=== PATIENT | female | born 1975 | race Caucasian/White ===

== ENCOUNTER 2018-02-17 20:07 | Inpatient (IN) | payer OTHER ==
[2018-02-17] MEDS ORDERED: ONDANSETRON 4 MG TAB PO (20:30)
[2018-02-17] MEDS ORDERED: NACL 0.9% 3 ML SYG IV (20:30)
[2018-02-17] MEDS ORDERED: BISACODYL (EC) 5 MG TAB PO (20:30)
[2018-02-17] MEDS ORDERED: DOCUSATE SODIUM 100 MG CAP PO (20:30)
[2018-02-17 21:02] LABS: ADD MAN DIFF? NO
[2018-02-17 21:04] LABS: BASOPHIL # 0.1 10^3/ul (0.0-0.1); BASOPHILS % 0.3 % (0.0-2.0); EOSINOPHILS % 0.1 % (0.0-7.0); HEMATOCRIT 34.3 % (37.0-47.0); HEMOGLOBIN 11.5 g/dl (12.0-16.0); LYMPHOCYTES % 11.5 % (15.0-51.0); MEAN CORPUSCULAR HEMOGLOBIN 30.4 pg (29.0-33.0); MEAN CORPUSCULAR HGB CONC 33.5 g/dl (32.0-37.0); MEAN CORPUSCULAR VOLUME 90.7 fl (82.0-101.0); MEAN PLATELET VOLUME 11.3 fl (7.4-10.4); MONOCYTE # 1.1 10^3/ul (0.3-0.9); MONOCYTES % 6.1 % (0.0-11.0); NEUTROPHIL # 14.3 10^3/ul (1.6-7.5); NEUTROPHILS % 81.5 % (39.0-77.0); PLATELET COUNT 237 10^3/UL (140-415); RED BLOOD COUNT 3.78 10^6/ul (4.20-5.40); RED CELL DISTRIBUTION WIDTH 12.7 % (11.5-14.5)
[2018-02-17 21:04] LABS: WHITE BLOOD COUNT 17.5 10^3/ul (4.8-10.8)
[2018-02-17] MEDS: SOD CHLORIDE 0.9% 1,000 ML IV (21:09)
[2018-02-17 21:27] LABS: ALANINE AMINOTRANSFERASE 16 IU/L (13-69); ALBUMIN 3.6 g/dl (3.3-4.9); ALKALINE PHOSPHATASE 71 IU/L (42-121); ANION GAP 13 (8-16); ASPARTATE AMINO TRANSFERASE 13 IU/L (15-46); BILIRUBIN,INDIRECT 2.6 mg/dl (0-1.1); BILIRUBIN,TOTAL 2.6 mg/dl (0.2-1.3); BLOOD UREA NITROGEN 6 mg/dl (7-20); CALCIUM 8.2 mg/dl (8.4-10.2); CARBON DIOXIDE 26 mmol/L (21-31); CHLORIDE 106 mmol/L (97-110); GLUCOSE 121 mg/dl (70-220); POTASSIUM 3.1 mmol/L (3.5-5.1); SODIUM 142 mmol/L (135-144); TOTAL PROTEIN 7.2 g/dl (6.1-8.1)
[2018-02-17] MEDS: POTASSIUM CHLORIDE (SR) 20 MEQ TAB PO (21:50)
[2018-02-17 22:57] LABS: HAAIG REFLEX REFLEX FILED
[2018-02-17 23:15] LABS: LACTIC ACID 1.5 mmol/L (0.5-2.0)
[2018-02-17 23:25] LABS: INR 1.15; PROTIME 14.9 Sec (11.9-14.9); PT RATIO 1.2
[2018-02-17 23:29] LABS: PARTIAL THROMBOPLASTIN TIME 29.9 Sec (25.0-35.0)
[2018-02-17 23:56] LABS: HEPATITIS B SURFACE ANTIGEN NEGATIVE (NEGATIVE)
[2018-02-18 00:13] LABS: HEPATITIS B SURFACE ANTIBODY NEGATIVE (NEGATIVE)
[2018-02-18 00:13] LABS: HEPATITIS B CORE ANTIBODY NEGATIVE (NEGATIVE); HEPATITIS C VIRAL ANTIBODY NEGATIVE (NEGATIVE)
[2018-02-18] MEDS: ACETAMINOPHEN 325 MG TAB PO ×3 (02:16→19:36)
[2018-02-18 05:09] LABS: ADD MAN DIFF? NO
[2018-02-18 05:24] LABS: BASOPHIL # 0.1 10^3/ul (0.0-0.1); BASOPHILS % 0.4 % (0.0-2.0); EOSINOPHILS # 0.1 10^3/ul (0.0-0.5); EOSINOPHILS % 0.5 % (0.0-7.0); HEMATOCRIT 31.3 % (37.0-47.0); HEMOGLOBIN 10.2 g/dl (12.0-16.0); LYMPHOCYTES # 3.2 10^3/ul (0.8-2.9); MEAN CORPUSCULAR HEMOGLOBIN 29.9 pg (29.0-33.0); MEAN CORPUSCULAR HGB CONC 32.6 g/dl (32.0-37.0); MEAN CORPUSCULAR VOLUME 91.8 fl (82.0-101.0); MEAN PLATELET VOLUME 12.2 fl (7.4-10.4); MONOCYTE # 1.2 10^3/ul (0.3-0.9); MONOCYTES % 7.5 % (0.0-11.0); NEUTROPHIL # 11.4 10^3/ul (1.6-7.5); NEUTROPHILS % 71.2 % (39.0-77.0); PLATELET COUNT 213 10^3/UL (140-415); RED BLOOD COUNT 3.41 10^6/ul (4.20-5.40); RED CELL DISTRIBUTION WIDTH 12.9 % (11.5-14.5)
[2018-02-18 05:44] LABS: IRON 21 ug/dl (35-150)
[2018-02-18 05:47] LABS: ALANINE AMINOTRANSFERASE 23 IU/L (13-69); ALBUMIN 3.1 g/dl (3.3-4.9); ALBUMIN/GLOBULIN RATIO 0.91; ALKALINE PHOSPHATASE 63 IU/L (42-121); ANION GAP 10 (8-16); ASPARTATE AMINO TRANSFERASE 12 IU/L (15-46); BILIRUBIN,INDIRECT 1.6 mg/dl (0-1.1); BILIRUBIN,TOTAL 1.6 mg/dl (0.2-1.3); BLOOD UREA NITROGEN 9 mg/dl (7-20); CALCIUM 8.2 mg/dl (8.4-10.2); CARBON DIOXIDE 28 mmol/L (21-31); CHLORIDE 107 mmol/L (97-110); CHOL/HDL RATIO 5.7 RATIO; CHOLESTEROL 139 mg/dl (100-200); CREATININE 0.68 mg/dl (0.44-1.00); GLUCOSE 103 mg/dl (70-220); HDL CHOLESTEROL 24 mg/dl (34-88); LDL CHOLESTEROL,CALCULATED 98 mg/dl; MAGNESIUM 1.9 mg/dl (1.7-2.5); POTASSIUM 3.5 mmol/L (3.5-5.1); SODIUM 141 mmol/L (135-144); TOTAL PROTEIN 6.5 g/dl (6.1-8.1); TRIGLYCERIDES 86 mg/dl (0-149)
[2018-02-18 05:54] LABS: % IRON SATURATION 7 % SAT (22-52); TOTAL IRON BINDING CAPACITY 284 ug/dl (241-421)
[2018-02-18 06:14] LABS: THYROID STIMULATING HORMONE 0.386 MIU/L (0.465-4.680)
[2018-02-18 06:21] LABS: FERRITIN 63.8 ng/ml (6.2-137.0)
[2018-02-18 07:41] LABS: HEMOGLOBIN A1C 5.9 % (0-5.9)
[2018-02-18] MEDS: HYDROCODONE/APAP (5/325) TAB PO ×2 (09:33→17:39)
[2018-02-18] MEDS ORDERED: CEFTRIAXONE 2 GM/50 ML (PMX) 50 ML IVPB (12:00)
[2018-02-18] MEDS: SOD CHLORIDE 0.9% 1,000 ML IV (14:11)
[2018-02-18] MEDS: FAMOTIDINE 20 MG TAB PO ×2 (14:11→20:42)
[2018-02-18] MEDS: MEROPENEM 1 GM/50ML(PMX) 50 ML IVPB ×2 (14:11→21:43)
[2018-02-18] MEDS: DOCUSATE SODIUM 100 MG CAP PO (20:42)
[2018-02-18] MEDS: FERROUS SULFATE (EC) 325 MG TAB PO (20:42)
[2018-02-19] MEDS: ACETAMINOPHEN 325 MG TAB PO ×2 (02:16→16:31)
[2018-02-19] MEDS: MEROPENEM 1 GM/50ML(PMX) 50 ML IVPB ×4 (06:17→21:55)
[2018-02-19] MEDS: SOD CHLORIDE 0.9% 1,000 ML IV ×2 (06:17→09:54)
[2018-02-19] MEDS ORDERED: CEFEPIME 1GM/50 ML (PMX) 50 ML (06:28)
[2018-02-19 08:58] LABS: ADD MAN DIFF? NO
[2018-02-19 09:08] LABS: WHITE BLOOD COUNT 11.6 10^3/ul (4.8-10.8)
[2018-02-19 09:08] LABS: BASOPHILS % 0.3 % (0.0-2.0); EOSINOPHILS # 0.1 10^3/ul (0.0-0.5); EOSINOPHILS % 0.5 % (0.0-7.0); HEMOGLOBIN 10.3 g/dl (12.0-16.0); LYMPHOCYTES # 1.8 10^3/ul (0.8-2.9); LYMPHOCYTES % 15.5 % (15.0-51.0); MEAN CORPUSCULAR HEMOGLOBIN 29.3 pg (29.0-33.0); MEAN CORPUSCULAR HGB CONC 32.2 g/dl (32.0-37.0); MEAN CORPUSCULAR VOLUME 91.2 fl (82.0-101.0); MEAN PLATELET VOLUME 11.9 fl (7.4-10.4); MONOCYTES % 8.2 % (0.0-11.0); NEUTROPHIL # 8.7 10^3/ul (1.6-7.5); NEUTROPHILS % 74.7 % (39.0-77.0); PLATELET COUNT 206 10^3/UL (140-415); RED BLOOD COUNT 3.51 10^6/ul (4.20-5.40); RED CELL DISTRIBUTION WIDTH 12.9 % (11.5-14.5)
[2018-02-19 09:26] LABS: ANION GAP 13 (8-16); BLOOD UREA NITROGEN 6 mg/dl (7-20); CALCIUM 8.3 mg/dl (8.4-10.2); CARBON DIOXIDE 27 mmol/L (21-31); CHLORIDE 107 mmol/L (97-110); CREATININE 0.52 mg/dl (0.44-1.00); GLUCOSE 99 mg/dl (70-220); POTASSIUM 3.8 mmol/L (3.5-5.1); SODIUM 143 mmol/L (135-144)
[2018-02-19] MEDS: FERROUS SULFATE (EC) 325 MG TAB PO ×2 (09:28→20:52)
[2018-02-19] MEDS: DOCUSATE SODIUM 100 MG CAP PO ×2 (09:28→20:52)
[2018-02-19] MEDS: FAMOTIDINE 20 MG TAB PO ×2 (09:28→20:52)
[2018-02-19] MEDS: IOHEXOL 300MG/ML 150 ML BTL (15:08)
[2018-02-19] MEDS: SOD CHLORIDE 0.9% 100 ML (15:08)
[2018-02-20] MEDS: SOD CHLORIDE 0.9% 1,000 ML IV ×2 (01:56→10:54)
[2018-02-20 05:51] LABS: ADD MAN DIFF? NO
[2018-02-20] MEDS: ACETAMINOPHEN 325 MG TAB PO (05:54)
[2018-02-20] MEDS: MEROPENEM 1 GM/50ML(PMX) 50 ML IVPB ×2 (05:54→13:07)
[2018-02-20 05:55] LABS: WHITE BLOOD COUNT 7.7 10^3/ul (4.8-10.8)
[2018-02-20 05:55] LABS: BASOPHILS % 0.4 % (0.0-2.0); EOSINOPHILS # 0.1 10^3/ul (0.0-0.5); HEMATOCRIT 31.4 % (37.0-47.0); HEMOGLOBIN 10.3 g/dl (12.0-16.0); LYMPHOCYTES # 2.4 10^3/ul (0.8-2.9); MEAN CORPUSCULAR HEMOGLOBIN 29.9 pg (29.0-33.0); MEAN CORPUSCULAR HGB CONC 32.8 g/dl (32.0-37.0); MEAN PLATELET VOLUME 11.5 fl (7.4-10.4); MONOCYTE # 0.7 10^3/ul (0.3-0.9); MONOCYTES % 8.8 % (0.0-11.0); NEUTROPHIL # 4.5 10^3/ul (1.6-7.5); NEUTROPHILS % 58.5 % (39.0-77.0); PLATELET COUNT 228 10^3/UL (140-415); RED BLOOD COUNT 3.45 10^6/ul (4.20-5.40); RED CELL DISTRIBUTION WIDTH 12.7 % (11.5-14.5)
[2018-02-20 06:13] LABS: ANION GAP 10 (8-16); BLOOD UREA NITROGEN 6 mg/dl (7-20); CALCIUM 8.3 mg/dl (8.4-10.2); CARBON DIOXIDE 29 mmol/L (21-31); CHLORIDE 106 mmol/L (97-110); CREATININE 0.58 mg/dl (0.44-1.00); GLUCOSE 109 mg/dl (70-220); POTASSIUM 3.6 mmol/L (3.5-5.1); SODIUM 141 mmol/L (135-144)
[2018-02-20] MEDS: FERROUS SULFATE (EC) 325 MG TAB PO (08:47)
[2018-02-20] MEDS: FAMOTIDINE 20 MG TAB PO (08:47)
[2018-02-20] MEDS: DOCUSATE SODIUM 100 MG CAP PO (08:48)
== END 2018-02-20 14:45 | disposition home or self-care (01) | DRG 872 ==
LOC: PP2 20:07
DX: A41.9 Sepsis, unspecified organism (principal); N10 Acute pyelonephritis; K76.0 Fatty (change of) liver, not elsewhere classified; D50.9 Iron deficiency anemia, unspecified; B96.20 Unspecified Escherichia coli [E. coli] as the cause of diseases classified elsewhere
CPT/HCPCS: 74176; 74177; 76700; 80048; 80053; 80061; 82728; 83036; 83540; 83605; 83735; 84443; 84703; 85025; 85610; 85730; 86704; 86706; 86708; 86709; 86803; 87040; 87081; 87086; 87340

== ENCOUNTER 2018-04-03 18:44 | Inpatient (IN) | payer OTHER ==
[2018-04-03] MEDS ORDERED: NACL 0.9% 3 ML SYG IV (20:30)
[2018-04-03] MEDS ORDERED: HYDROCODONE/APAP (5/325) TAB PO (20:30)
[2018-04-03] MEDS ORDERED: DOCUSATE SODIUM 100 MG CAP PO (20:30)
[2018-04-03] MEDS ORDERED: BISACODYL (EC) 5 MG TAB PO (20:30)
[2018-04-03] MEDS ORDERED: ONDANSETRON 4 MG INJ IV (20:30)
[2018-04-03 20:41] LABS: ADD MAN DIFF? NO
[2018-04-03 20:43] LABS: BASOPHILS % 0.1 % (0.0-2.0); HEMATOCRIT 37.6 % (37.0-47.0); HEMOGLOBIN 12.3 g/dl (12.0-16.0); LYMPHOCYTES # 1.6 10^3/ul (0.8-2.9); MEAN CORPUSCULAR HEMOGLOBIN 29.4 pg (29.0-33.0); MEAN CORPUSCULAR HGB CONC 32.7 g/dl (32.0-37.0); MEAN CORPUSCULAR VOLUME 89.7 fl (82.0-101.0); MEAN PLATELET VOLUME 10.9 fl (7.4-10.4); MONOCYTE # 0.3 10^3/ul (0.3-0.9); MONOCYTES % 2.4 % (0.0-11.0); NEUTROPHIL # 11.5 10^3/ul (1.6-7.5); NEUTROPHILS % 85.3 % (39.0-77.0); PLATELET COUNT 262 10^3/UL (140-415); RED BLOOD COUNT 4.19 10^6/ul (4.20-5.40); RED CELL DISTRIBUTION WIDTH 12.7 % (11.5-14.5)
[2018-04-03 20:43] LABS: WHITE BLOOD COUNT 13.5 10^3/ul (4.8-10.8)
[2018-04-03 20:53] LABS: HEMOGLOBIN A1C 5.7 % (0-5.9)
[2018-04-03 21:07] LABS: ALANINE AMINOTRANSFERASE 29 IU/L (13-69); ALBUMIN 3.6 g/dl (3.3-4.9); ALKALINE PHOSPHATASE 81 IU/L (42-121); ANION GAP 14 (8-16); ASPARTATE AMINO TRANSFERASE 25 IU/L (15-46); BILIRUBIN,INDIRECT 1.2 mg/dl (0-1.1); BILIRUBIN,TOTAL 1.2 mg/dl (0.2-1.3); BLOOD UREA NITROGEN 7 mg/dl (7-20); CALCIUM 9.2 mg/dl (8.4-10.2); CARBON DIOXIDE 26 mmol/L (21-31); CHLORIDE 106 mmol/L (97-110); CREATININE 0.68 mg/dl (0.44-1.00); GLUCOSE 133 mg/dl (70-220); POTASSIUM 3.4 mmol/L (3.5-5.1); SODIUM 143 mmol/L (135-144); TOTAL PROTEIN 7.2 g/dl (6.1-8.1)
[2018-04-03 21:24] LABS: FREE T3 3.49 pg/ml (2.77-5.27)
[2018-04-03 21:26] LABS: FREE T4 (FREE THYROXINE) 1.05 ng/dl (0.64-1.79)
[2018-04-03] MEDS: ACETAMINOPHEN 325 MG TAB PO (23:08)
[2018-04-03] MEDS: MEROPENEM 1 GM/50ML(PMX) 50 ML IVPB (23:08)
[2018-04-03 23:13] LABS: ADD UMIC YES; UR ASCORBIC ACID NEGATIVE (NEGATIVE); UR BILIRUBIN (Dip) NEGATIVE (NEGATIVE); UR BLOOD (Dip) 2+ mg/dL (NEGATIVE); UR CLARITY SLIGHTLY CLOUDY (CLEAR); UR COLOR YELLOW (YELLOW); UR GLUCOSE (Dip) NEGATIVE (NEGATIVE); UR KETONES (Dip) NEGATIVE (NEGATIVE); UR LEUKOCYTE ESTERASE (Dip) TRACE Leu/ul (NEGATIVE); UR MUCUS FEW /HPF (NONE SEEN); UR NITRITE (Dip) NEGATIVE (NEGATIVE); UR RBC 9 /HPF (0-5); UR SPECIFIC GRAVITY (Dip) 1.025 (1.003-1.030); UR SQUAMOUS EPITHELIAL CELL FEW /HPF (FEW); UR TOTAL PROTEIN (Dip) 1+ mg/dl (NEGATIVE); UR UROBILINOGEN (Dip) NEGATIVE (NEGATIVE); UR WBC 1 /HPF (0-5)
[2018-04-04] MEDS: POTASSIUM CHLORIDE 30 MEQ in SOD CHLORIDE 0.9% 1,000 ML IV ×3 (02:16→13:28)
[2018-04-04 05:16] LABS: ADD MAN DIFF? NO
[2018-04-04 05:21] LABS: BASOPHILS % 0.3 % (0.0-2.0); EOSINOPHILS % 0.2 % (0.0-7.0); HEMATOCRIT 34.7 % (37.0-47.0); HEMOGLOBIN 11.2 g/dl (12.0-16.0); LYMPHOCYTES # 1.6 10^3/ul (0.8-2.9); LYMPHOCYTES % 14.3 % (15.0-51.0); MEAN CORPUSCULAR HEMOGLOBIN 29.2 pg (29.0-33.0); MEAN CORPUSCULAR HGB CONC 32.3 g/dl (32.0-37.0); MEAN CORPUSCULAR VOLUME 90.6 fl (82.0-101.0); MEAN PLATELET VOLUME 11.6 fl (7.4-10.4); MONOCYTE # 0.5 10^3/ul (0.3-0.9); MONOCYTES % 4.1 % (0.0-11.0); NEUTROPHIL # 8.9 10^3/ul (1.6-7.5); NEUTROPHILS % 80.8 % (39.0-77.0); PLATELET COUNT 237 10^3/UL (140-415); RED BLOOD COUNT 3.83 10^6/ul (4.20-5.40); RED CELL DISTRIBUTION WIDTH 12.6 % (11.5-14.5)
[2018-04-04 05:39] LABS: ALANINE AMINOTRANSFERASE 25 IU/L (13-69); ALBUMIN 3.4 g/dl (3.3-4.9); ALBUMIN/GLOBULIN RATIO 1.09; ALKALINE PHOSPHATASE 74 IU/L (42-121); ANION GAP 10 (8-16); ASPARTATE AMINO TRANSFERASE 30 IU/L (15-46); BILIRUBIN,INDIRECT 0.7 mg/dl (0-1.1); BILIRUBIN,TOTAL 0.7 mg/dl (0.2-1.3); BLOOD UREA NITROGEN 9 mg/dl (7-20); CALCIUM 8.2 mg/dl (8.4-10.2); CARBON DIOXIDE 24 mmol/L (21-31); CHLORIDE 109 mmol/L (97-110); CREATININE 0.51 mg/dl (0.44-1.00); GLUCOSE 103 mg/dl (70-220); POTASSIUM 3.5 mmol/L (3.5-5.1); SODIUM 139 mmol/L (135-144); TOTAL PROTEIN 6.5 g/dl (6.1-8.1)
[2018-04-04] MEDS: MEROPENEM 1 GM/50ML(PMX) 50 ML IVPB ×3 (06:22→21:41)
[2018-04-04] MEDS: SOD CHLORIDE 0.9% 100 ML (10:59)
[2018-04-04] MEDS: IOHEXOL 300MG/ML 150 ML BTL (10:59)
[2018-04-05] MEDS: POTASSIUM CHLORIDE 30 MEQ in SOD CHLORIDE 0.9% 1,000 ML IV ×2 (01:29→14:12)
[2018-04-05 05:17] LABS: ADD MAN DIFF? NO; BASOPHILS % 0.4 % (0.0-2.0); EOSINOPHILS # 0.2 10^3/ul (0.0-0.5); EOSINOPHILS % 1.9 % (0.0-7.0); HEMATOCRIT 31.8 % (37.0-47.0); HEMOGLOBIN 10.3 g/dl (12.0-16.0); LYMPHOCYTES # 2.7 10^3/ul (0.8-2.9); LYMPHOCYTES % 34.7 % (15.0-51.0); MEAN CORPUSCULAR HEMOGLOBIN 29.1 pg (29.0-33.0); MEAN CORPUSCULAR HGB CONC 32.4 g/dl (32.0-37.0); MEAN CORPUSCULAR VOLUME 89.8 fl (82.0-101.0); MEAN PLATELET VOLUME 11.4 fl (7.4-10.4); MONOCYTE # 0.7 10^3/ul (0.3-0.9); MONOCYTES % 8.5 % (0.0-11.0); NEUTROPHIL # 4.3 10^3/ul (1.6-7.5); NEUTROPHILS % 54.4 % (39.0-77.0); PLATELET COUNT 234 10^3/UL (140-415); RED BLOOD COUNT 3.54 10^6/ul (4.20-5.40); RED CELL DISTRIBUTION WIDTH 12.7 % (11.5-14.5)
[2018-04-05 05:17] LABS: WHITE BLOOD COUNT 7.9 10^3/ul (4.8-10.8)
[2018-04-05 05:38] LABS: ALANINE AMINOTRANSFERASE 34 IU/L (13-69); ALBUMIN 2.8 g/dl (3.3-4.9); ALKALINE PHOSPHATASE 62 IU/L (42-121); ANION GAP 12 (8-16); ASPARTATE AMINO TRANSFERASE 26 IU/L (15-46); BILIRUBIN,INDIRECT 0.4 mg/dl (0-1.1); BILIRUBIN,TOTAL 0.4 mg/dl (0.2-1.3); BLOOD UREA NITROGEN 9 mg/dl (7-20); CALCIUM 8.5 mg/dl (8.4-10.2); CARBON DIOXIDE 28 mmol/L (21-31); CHLORIDE 107 mmol/L (97-110); CREATININE 0.49 mg/dl (0.44-1.00); GLUCOSE 108 mg/dl (70-220); LIPASE 119 U/L (23-300); SODIUM 143 mmol/L (135-144); TOTAL PROTEIN 5.9 g/dl (6.1-8.1)
[2018-04-05] MEDS: MEROPENEM 1 GM/50ML(PMX) 50 ML IVPB ×2 (05:44→14:12)
[2018-04-05 06:38] LABS: ERYTHROCYTE SEDIMENTATION RATE 35 mm/Hr (0-20)
== END 2018-04-05 19:45 | disposition home or self-care (01) | DRG 392 ==
LOC: PP2 18:44
DX: K52.9 Noninfective gastroenteritis and colitis, unspecified (principal); N10 Acute pyelonephritis; D64.9 Anemia, unspecified; E66.9 Obesity, unspecified; Z68.30 Body mass index [BMI] 30.0-30.9, adult
CPT/HCPCS: 74177; 80053; 81001; 83036; 83690; 83735; 84439; 84443; 84481; 84703; 85025; 85651; 86140; 87045; 87075; 87086; 87177; 87205

== ENCOUNTER 2018-11-18 09:19 | Day surgery (SDC) | payer OTHER ==
[2018-11-18] MEDS ORDERED: PROPOFOL 40 ML (10:58)
== END 2018-11-18 11:01 | disposition home or self-care (01) ==
LOC: GIL 09:19
DX: R19.4 Change in bowel habit (principal); K64.8 Other hemorrhoids; K29.30 Chronic superficial gastritis without bleeding
CPT/HCPCS: 43239; 84703; 88305; 88312